=== PATIENT | male | born 1965 | race Caucasian/White ===

== ENCOUNTER 2019-01-07 04:29 | Emergency (ER) | payer OTHER ==
[~2019-01-07] VITALS: Ht 172.7 cm; Wt 90.7 kg
[2019-01-07 05:05] LABS: ABSOLUTE EOSINOPHILS 0.5 thou/uL (0.0-0.7); ABSOLUTE LYMPHOCYTES 1.2 thou/uL (0.8-5.3); ABSOLUTE MONOCYTES 0.6 thou/uL (0.0-1.2); ABSOLUTE NEUTROPHILS 6.5 thou/uL (1.6-8.1); BASOPHILS 0.5 %; EOSINOPHILS 5.8 %; HEMOGLOBIN 13.7 gm/dL (14.0-18.0); LYMPHOCYTES 13.2 %; MCH 28.4 pg (26.0-34.0); MCHC 33.4 g/dL (28.0-37.0); MCV 84.9 fL (80.0-100.0); MONOCYTES 6.4 %; MPV 6.7 fl. (7.2-11.1); NUCLEATED RBCS 0 /100WBC; PLATELET COUNT* 285 thou/uL (150-400); POLYS 74.1 %; RBC 4.83 mil/uL (4.50-6.00); RDW-CV 12.8 % (10.5-14.5); WBC 8.8 thou/uL (4.0-11.0)
[2019-01-07 05:14] LABS: CALCIUM 9.1 mg/dL (8.5-10.1); CREATININE 1.1 mg/dL (0.6-1.3); POTASSIUM 3.8 mmol/L (3.5-5.1)
[2019-01-07 06:38] LABS: URINE BILIRUBIN NEGATIVE (Negative); URINE BLOOD NEGATIVE (Negative); URINE CLARITY CLEAR; URINE COLOR YELLOW; URINE GLUCOSE-RANDOM NEGATIVE (Negative); URINE KETONES NEGATIVE (Negative); URINE LEUKOCYTES-REFLEX NEGATIVE (Negative); URINE NITRITE-REFLEX NEGATIVE (Negative); URINE PROTEIN NEGATIVE (Negative); URINE SPECIFIC GRAVITY 1.015 (1.005-1.030); URINE UROBILINOGEN 0.2 E.U./dl (0.2-1.0)
[2019-01-07 06:47] LABS: AMP/METHAMP POSITIVE (Negative); BARBITURATES Negative (Negative); BENZODIAZEPINES Negative (Negative); COCAINE Negative (Negative); METHADONE Negative (Negative); OPIATES POSITIVE (Negative); PCP Negative (Negative); THC Negative (Negative)
[2019-01-07] MEDS ORDERED: TORADOL 10 MG T10 MG PO (06:48)
[2019-01-07] MEDS ORDERED: HYDROCODON-ACE1 EAC7 PO (06:48)
[2019-01-07] MEDS ORDERED: MICONAZOLE NITR45 G3 TOP (06:48)
[2019-01-07] MEDS ORDERED: DOXYCYCLINE 10100 MG PO (06:48)
[2019-01-07 07:07] VITALS: BP 130/63
== END 2019-01-07 07:07 | disposition home or self-care (01) ==
LOC: M.ERS 04:29
PROVIDERS: Personal Emergency Response Attendant
DX: N45.1 Epididymitis (principal)